=== PATIENT | male | born 1970 | race African-American/Black ===

== ENCOUNTER 2017-01-25 19:22 | Emergency (ER) | payer MEDICARE, OTHER ==
[2017-01-25 17:44] LABS: BASOPHILS 0.6 %; BASOPHILS ABSOLUTE 0.04 10/3/uL (0.0-0.16); EOSINOPHILS 1.3 %; EOSINOPHILS ABSOLUTE 0.09 10/3/uL (0.0-0.53); ER CBC TAT 0 Hrs 05 Mins; IMMATURE GRANULOCYTES 0.1 %; IMMATURE GRANULOCYTES ABSOLUTE 0.01 10/3/uL (0.0-0.11); LYMPHOCYTES 17.4 %; LYMPHOCYTES ABSOLUTE 1.17 10/3/uL (0.67-4.30); MEAN CORPUS HGB CONC 32.2 g/dL (32.0-36.0); MEAN CORPUSCULAR HEMOGLOB 27.6 pg (26.0-34.0); MEAN CORPUSCULAR VOLUME 85.7 fL (80-100); MONOCYTES 7.9 %; MONOCYTES ABSOLUTE 0.53 10/3/uL (0.21-1.20); NEUTROPHILS 72.7 %; PLATELET COUNT 212 10/3/uL (150-400); RBC DISTRIBUTION WIDTH 14.6 % (12.0-16.0); WHITE BLOOD CELLS 6.7 10/3/uL (4.5-10.5)
[2017-01-25 17:49] LABS: HEMATOCRIT 23.3 % (40.0-51.0); HEMOGLOBIN 7.5 g/dL (13.6-17.8); MANUAL DIFF NO %; RED CELL COUNT 2.72 10/6/uL (4.7-6.1)
[2017-01-25 17:59] LABS: A/G RATIO 0.7 (0.7-1.9); ALBUMIN 3.6 G/DL (3.5-5.0); CALCIUM, SERUM 9.2 MG/DL (8.5-10.4); CHLORIDE, SERUM 111 MMOL/L (96-112); GLOBULIN 5.4 G/DL (2.5-4.1); GLUCOSE, SERUM 92 MG/DL (60-99); SGOT(AST) 14 U/L (5-40); SGPT(ALT) 19 U/L (5-65); SODIUM, SERUM 141 MMOL/L (135-148)
[2017-01-25 18:08] LABS: CO2 (CARBON DIOXIDE) 20 MMOL/L (24-34); POTASSIUM, SERUM 5.9 MMOL/L (3.5-5.3)
[2017-01-25 18:09] LABS: ALKALINE PHOSPHATASE 57 U/L (45-117); BUN (BLOOD UREA NITROGEN) 130 MG/DL (6-23); GFR AFRICAN AMERICAN 4 ML/MIN (>=60); GFR NON AFRICAN AMERICAN 3 ML/MIN (>=60); TOTAL BILIRUBIN 0.8 MG/DL (0-1.2)
[~2017-01-25 19:22] MED LIST: ASABAYER PO; CIPRODEX OT; CLARIT10 PO; EPIPEN0.3 IM; FLONASE NAS; I40 PO; IRON325 MG PO; MIRALAXPKT PO; NIASPAN500 PO; NORV10 PO; NORV5 PO; OCEAN NAS; SALINE NASAL SPRAY NAS; SINGULAIR1 PO; ZOCOR10 PO; [UNRECOGNIZED DRUG - OTHER] OPH
== END 2017-01-25 20:09 | disposition home or self-care (01) ==
LOC: ER 19:22
PROVIDERS: Emergency Medicine
DX: I12.9 Hypertensive chronic kidney disease with stage 1 through stage 4 chronic kidney disease, or unspecified chronic kidney disease (principal); N18.9 Chronic kidney disease, unspecified; E87.5 Hyperkalemia; D63.1 Anemia in chronic kidney disease; Z91.038 Other insect allergy status; Z79.82 Long term (current) use of aspirin; Z79.899 Other long term (current) drug therapy
CPT/HCPCS: 71010; 80053; 81001; 83690; 85025; 99284